=== PATIENT | female | born 1940 | race Caucasian/White ===

== ENCOUNTER 2022-03-14 02:37 | Emergency (ER) | payer MEDICARE ==
[~2022-03-14] VITALS: Ht 167.6 cm; Wt 72.0 kg
[~2022-03-14 02:37] MED LIST: ASPIRIN EC81 MG PO; AUGMENTIN500TAB PO; BIOTIN1000 MCG PO; BL IBUPROFEN200 MG PO; CALCIUM500 M5 PO; CO Q-10 PO; COMPAZINE10 M1 PO; DETROL LA4 MG PO; DORZOLAMIDE2 % OP; FAMOTIDINE20 M1 PO; GABAPENTIN800 MG PO; GLUCOSAMINE500 M4 PO; HYDROCHLOROT25 MG PO; LEVAQUIN500 MG PO; MULTI VIT PO; MULTI VITAMN PO; NAC 600 PO; OMEGA-3 PO; PAIN RELIEF500 M3 PO; PRAVASTATIN20 MG PO; PREVNAR 13 IM; TESSALON PER100 MG PO; ULTRAM50 M1 PO
[2022-03-14 02:49] VITALS: BP 189/89
[2022-03-14] MEDS ORDERED: MOTRIN400 MG/TAB PO (03:25)
[2022-03-14 03:28] LABS: HEMOGLOBIN 14.3 g/dl (12.0-16.0); IMMATURE GRANULOCYTES 0.2 % (0.0-5.0); MEAN CELL VOLUME 95.3 fL CALC (80.0-100.0); MEAN CORPUSCULAR HGB 31.7 pG CALC (26.0-32.0); MEAN CORPUSCULAR HGB CONC 33.3 g/dL CAL (32.0-36.0); NEUT# 3.28 thou/uL (2.00-7.15); RED BLOOD COUNT 4.51 mill/uL (4.20-5.60); RED CELL DISTRI WIDTH 11.7 % (11.5-15.5)
[2022-03-14 03:31] LABS: ALBUMIN 4.1 g/dL (3.2-5.0); ALKALINE PHOSPHATASE 85 u/l (38-126); AMYLASE 87 u/l (30-110); ANION GAP 10 (6-22 (CALC)); BILIRUBIN, TOTAL 0.3 mg/dL (0.0-1.4); BUN 11 mg/dL (8-23); BUN/CREATININE RATIO 20 (12-20 (CALC)); CARBON DIOXIDE 28 mmol/l (22-30); CHLORIDE 99 mmol/l (95-108); CPK 110 u/l (30-165); CREATININE 0.6 mg/dL (0.5-1.0); GFR > 60 ML/MIN (>=60 (CALC)); GFR FOR AFR.AMER. > 60 ML/MIN (>=60 (CALC)); LIPASE 82 u/l (23-300); MAGNESIUM 1.8 mg/dL (1.6-2.3); POTASSIUM 3.3 mmol/l (3.5-5.1); SGOT/AST 31 u/l (9-36); SODIUM 134 mmol/l (137-146); TOTAL PROTEIN 6.7 g/dL (6.3-8.2)
[2022-03-14 03:34] LABS: URINE BILIRUBIN - DIPSTICK NEGATIVE (NEGATIVE); URINE BLOOD DIPSTICK TRACE-INTACT (NEGATIVE); URINE COLOR YELLOW; URINE GLUCOSE - DIPSTICK NEGATIVE (NEGATIVE); URINE KETONE NEGATIVE (NEGATIVE); URINE LEUK ESTERASE NEGATIVE (NEGATIVE); URINE PROTEIN - DIPSTICK NEGATIVE (NEG-TRACE); URINE UROBILINOGEN - DIPSTICK 0.2 E.U./dL (0.2)
[2022-03-14 03:35] LABS: D-DIMER 0.39 mg/L (0.19-0.60)
[2022-03-14 03:40] LABS: URINE NITRITE - DIPSTICK NEGATIVE (Negative)
[2022-03-14 03:42] VITALS: BP 151/73
[2022-03-14 03:42] LABS: ACT PARTIAL THROMBO TIME 21.9 SECONDS (20.0-32.5); INTERNATIONAL NORMALIZED RATIO 0.9 RATIO (0.7-1.3); PROTHROMBIN TIME 9.9 SECONDS (9.0-12.5)
[2022-03-14 03:43] LABS: MYOGLOBIN 52 ng/mL (0 - 62)
[2022-03-14 04:01] VITALS: BP 135/68
[2022-03-14 04:01] LABS: TSH, 3RD GENERATION 0.35 uIU/mL (0.47 - 4.68)
[2022-03-14 04:31] VITALS: BP 134/94
[2022-03-14 05:01] VITALS: BP 160/72
[2022-03-14 05:05] VITALS: BP 160/72
== END 2022-03-14 05:14 | disposition home or self-care (01) ==
LOC: ED 02:37
PROVIDERS: Family Medicine
DX: R00.2 Palpitations (principal); R51.9 Headache, unspecified; R53.1 Weakness; I10 Essential (primary) hypertension; E78.00 Pure hypercholesterolemia, unspecified

== ENCOUNTER 2022-03-21 10:13 | Emergency (ER) | payer MEDICARE ==
[~2022-03-21] VITALS: Ht 167.6 cm; Wt 71.0 kg
[2022-03-21] VITALS (10 sets, daily range): BP systolic 143–167; BP diastolic 73–93
[~2022-03-21 10:13] MED LIST changes: +MOTRIN400 MG/TAB PO
[2022-03-21 10:39] LABS: HEMATOCRIT 40.1 % (37.0-47.0); HEMOGLOBIN 13.2 g/dl (12.0-16.0); IMMATURE GRANULOCYTES 0.3 % (0.0-5.0); MEAN CELL VOLUME 95.9 fL CALC (80.0-100.0); MEAN CORPUSCULAR HGB 31.6 pG CALC (26.0-32.0); MEAN CORPUSCULAR HGB CONC 32.9 g/dL CAL (32.0-36.0); NEUT# 4.28 thou/uL (2.00-7.15); RED BLOOD COUNT 4.18 mill/uL (4.20-5.60); RED CELL DISTRI WIDTH 11.9 % (11.5-15.5)
[2022-03-21 11:03] LABS: ALBUMIN 4.1 g/dL (3.2-5.0); ALKALINE PHOSPHATASE 67 u/l (38-126); ANION GAP 11 (6-22 (CALC)); BUN 16 mg/dL (8-23); BUN/CREATININE RATIO 27 (12-20 (CALC)); CARBON DIOXIDE 28 mmol/l (22-30); CHLORIDE 101 mmol/l (95-108); CREATININE 0.6 mg/dL (0.5-1.0); GFR > 60 ML/MIN (>=60 (CALC)); GFR FOR AFR.AMER. > 60 ML/MIN (>=60 (CALC)); POTASSIUM 3.8 mmol/l (3.5-5.1); SGOT/AST 29 u/l (9-36); SODIUM 136 mmol/l (137-146); TOTAL PROTEIN 6.7 g/dL (6.3-8.2)
[2022-03-21 11:07] LABS: BILIRUBIN, TOTAL 0.3 mg/dL (0.0-1.4)
== END 2022-03-21 14:58 | disposition short-term general hospital (02) ==
LOC: ED 10:13
PROVIDERS: Family Medicine
DX: I25.110 Atherosclerotic heart disease of native coronary artery with unstable angina pectoris (principal); I10 Essential (primary) hypertension; E78.00 Pure hypercholesterolemia, unspecified; Z20.822 Contact with and (suspected) exposure to COVID-19
CPT/HCPCS: J1650

== ENCOUNTER 2022-04-15 06:57 | Day surgery (SDC) | payer MEDICARE ==
[~2022-04-15] VITALS: Ht 167.6 cm; Wt 70.3 kg
[~2022-04-15 06:57] MED LIST changes: +LOSARTAN/HCT1 TA1 PO; +TOPROL XL50 MG PO; +[UNRECOGNIZED DRUG - OTHER]
[2022-04-15 09:41] VITALS: BP 136/77
== END 2022-04-15 09:30 | disposition home or self-care (01) ==
LOC: ENDO 06:57 → ORM 08:00 → ENDO 09:30 → ORM 11:45
PROVIDERS: ATTEND Surgery
PROC: 0DJD8ZZ Inspection of Lower Intestinal Tract, Via Natural or Artificial Opening Endoscopic (ICD-10-PCS; principal; 2022-04-15)
DX: K57.30 Diverticulosis of large intestine without perforation or abscess without bleeding (principal); K64.8 Other hemorrhoids; I10 Essential (primary) hypertension; E78.00 Pure hypercholesterolemia, unspecified

== ENCOUNTER 2022-09-30 11:29 | Emergency (ER) | payer MEDICARE ==
[~2022-09-30] VITALS: Ht 167.6 cm; Wt 70.0 kg
[2022-09-30 11:35] VITALS: BP 160/73
[2022-09-30 12:00] VITALS: BP 140/73
[2022-09-30 12:30] VITALS: BP 107/74
[2022-09-30 13:01] VITALS: BP 132/75
[2022-09-30 13:06] VITALS: BP 132/75
== END 2022-09-30 13:19 | disposition home or self-care (01) ==
LOC: ED 11:29
DX: J02.9 Acute pharyngitis, unspecified (principal); J06.9 Acute upper respiratory infection, unspecified; I10 Essential (primary) hypertension; E78.00 Pure hypercholesterolemia, unspecified; Z20.822 Contact with and (suspected) exposure to COVID-19